=== PATIENT | female | born 1955 | race Two or more races ===

== ENCOUNTER 2022-01-24 09:22 | Inpatient (IN) | payer MEDICARE, OTHER ==
[~2022-01-24] VITALS: Ht 142.2 cm; Wt 59.1 kg
[2022-01-24] MEDS ORDERED: HYDROcodone-ACET 5/325MG TAB PO ONE (10:00)
[2022-01-24 10:15] LABS: Urine Bacteria NONE SEEN /hpf (None Seen); Urine Blood Negative /uL (Negative); Urine Specific Gravity 1.002 (1.001-1.035); Urine WBC 1 /hpf (0 - 5)
[2022-01-24 10:38] LABS: Basophils # (auto) 0.1 10 ^3/uL (0-0.2); Basophils % (auto) 1.2 % (0.0-2.0); Eosinophils # (auto) 0.1 10 ^3/uL (0-0.8); Eosinophils % (auto) 0.7 % (0.0-7.0); Lymphocytes # (auto) 2.6 10 ^3/uL (0.4-5.4); Lymphocytes % (auto) 25.3 % (10.0-50.0); Mean Corpuscular Hemoglobin 29.8 pg (28.0-32.0); Mean Corpuscular Hgb Conc. 33.3 g/dL (32.0-36.0); Mean Corpuscular Volume 89.6 fL (80.0-100.0); Monocytes # (auto) 0.8 10 ^3/uL (0-1.3); Monocytes % (auto) 8.2 % (0.0-12.0); Neutrophils # (auto) 6.6 10 ^3/uL (1.6-8.6); Neutrophils % (auto) 64.6 % (37.0-80.0); Nucleated Red Blood Cells % 0.2 %; Red Blood Cells 4.69 10^6/uL (4.0-5.20); Red Cell Distribution Width 14.4 % (11.8-14.3); White Blood Cell 10.2 10^3/uL (4.4-10.8)
[2022-01-24 10:56] LABS: Albumin 3.9 g/dL (3.4-5.0); Calcium 9.3 mg/dL (8.5-10.1); Potassium 4.3 mmol/L (3.5-5.1)
[2022-01-24 10:59] LABS: BUN/Creatinine Ratio 22.4; Bilirubin, Total 0.5 mg/dL (0.2-1.0); Total Protein 8.5 g/dL (6.4-8.2)
[2022-01-24] MEDS ORDERED: ONDANSETRON ODT 4 MG TAB PO ONE (13:00)
[2022-01-24] MEDS ORDERED: IOHEXOL 300 MG/ML 100ML BOTTLE IJ ONE ×2 (13:02→13:39)
[2022-01-24] MEDS ORDERED: metroNIDAZOLE 500MG/100ML 100 ML IV ONE (16:00)
[2022-01-24] MEDS ORDERED: cefTRIAXone 1GM/50ML D5W 50 ML IV ONE (16:00)
[2022-01-24] MEDS ORDERED: LACTATED RINGER'S 1,000 ML IV ONE (16:15)
[2022-01-24] MEDS ORDERED: ONDANSETRON HCL 4 MG/2 ML VIAL IV PRN (16:15)
[2022-01-24] MEDS ORDERED: MORPHINE SULFATE INJECTION 2 MG/ML SYRG IV PRN (16:15)
[2022-01-24] MEDS ORDERED: SODIUM CHLORIDE 0.9% 1,000 ML IV ONE (16:15)
[2022-01-24] MEDS ORDERED: PANTOPRAZOLE 40 MG/10 ML VIAL INJ IV ONE (16:45)
[2022-01-24 18:28] LABS: INR 1.05 (0.9-1.15)
[2022-01-24 18:46] VITALS: BP 175/74
[2022-01-24 22:00] VITALS: BP 162/72
[2022-01-24] MEDS: metroNIDAZOLE 500MG/100ML 100 ML IV SCH (22:18)
[2022-01-25 05:00] VITALS: BP 182/66
[2022-01-25 05:50] LABS: Basophils # (auto) 0.1 10 ^3/uL (0-0.2); Basophils % (auto) 0.7 % (0.0-2.0); Eosinophils # (auto) 0.2 10 ^3/uL (0-0.8); Eosinophils % (auto) 2.7 % (0.0-7.0); Hematocrit 38.1 % (36.0-46.0); Hemoglobin 12.9 g/dL (12.2-16.2); Lymphocytes # (auto) 2.3 10 ^3/uL (0.4-5.4); Lymphocytes % (auto) 29.3 % (10.0-50.0); Mean Corpuscular Hemoglobin 30.3 pg (28.0-32.0); Mean Corpuscular Hgb Conc. 33.9 g/dL (32.0-36.0); Mean Corpuscular Volume 89.5 fL (80.0-100.0); Monocytes # (auto) 0.8 10 ^3/uL (0-1.3); Monocytes % (auto) 10.1 % (0.0-12.0); Neutrophils # (auto) 4.4 10 ^3/uL (1.6-8.6); Neutrophils % (auto) 57.2 % (37.0-80.0); Nucleated Red Blood Cells % 0.1 %; Red Blood Cells 4.25 10^6/uL (4.0-5.20); Red Cell Distribution Width 14.5 % (11.8-14.3); White Blood Cell 7.7 10^3/uL (4.4-10.8)
[2022-01-25] MEDS: metroNIDAZOLE 500MG/100ML 100 ML IV SCH ×3 (06:03→22:04)
[2022-01-25 06:16] LABS: Potassium 5.2 mmol/L (3.5-5.1)
[2022-01-25 06:31] LABS: Albumin 3.1 g/dL (3.4-5.0); BUN/Creatinine Ratio 16.2; Bilirubin, Total 0.6 mg/dL (0.2-1.0); Calcium 8.9 mg/dL (8.5-10.1); Total Protein 7.2 g/dL (6.4-8.2)
[2022-01-25 06:42] VITALS: BP 175/75
[2022-01-25 08:00] VITALS: BP 159/77
[2022-01-25] MEDS: cefTRIAXone 1GM/50ML D5W 50 ML IV SCH (09:58)
[2022-01-25] MEDS: PANTOPRAZOLE 40 MG/10 ML VIAL INJ IV SCH (09:59)
[2022-01-25] MEDS ORDERED: amLODIPine BESYLATE 5 MG TAB PO ONE (11:15)
[2022-01-25 12:00] VITALS: BP 186/83
[2022-01-25] MEDS ORDERED: ACETAMINOPHEN 325 MG TAB PO PRN (15:45)
[2022-01-25 16:00] VITALS: BP 156/70
[2022-01-25] MEDS: LACTATED RINGER'S 1,000 ML IV SCH (16:52)
[2022-01-25 22:00] VITALS: BP 133/73
[2022-01-25] MEDS: METOPROLOL TARTRATE 50 MG TAB PO SCH (22:05)
[2022-01-26] MEDS: LACTATED RINGER'S 1,000 ML IV SCH ×4 (03:50→21:24)
[2022-01-26 05:00] VITALS: BP 141/70
[2022-01-26] MEDS: metroNIDAZOLE 500MG/100ML 100 ML IV SCH ×3 (06:20→21:24)
[2022-01-26 08:00] VITALS: BP 148/80
[2022-01-26] MEDS: cefTRIAXone 1GM/50ML D5W 50 ML IV SCH (10:12)
[2022-01-26] MEDS: PANTOPRAZOLE 40 MG/10 ML VIAL INJ IV SCH (10:13)
[2022-01-26] MEDS: METOPROLOL TARTRATE 50 MG TAB PO SCH ×2 (10:14→21:35)
[2022-01-26] MEDS: amLODIPine BESYLATE 5 MG TAB PO SCH (10:14)
[2022-01-26 12:00] VITALS: BP 148/72
[2022-01-26 16:00] VITALS: BP 134/65
[2022-01-26 21:48] VITALS: BP 146/81
[2022-01-27] VITALS (10 sets, daily range): BP systolic 103–143; BP diastolic 48–79
[2022-01-27] MEDS: metroNIDAZOLE 500MG/100ML 100 ML IV SCH ×3 (06:08→21:51)
[2022-01-27] MEDS: cefTRIAXone 1GM/50ML D5W 50 ML IV SCH (08:45)
[2022-01-27] MEDS: LACTATED RINGER'S 1,000 ML IV SCH ×2 (08:45→16:45)
[2022-01-27] MEDS: PANTOPRAZOLE 40 MG/10 ML VIAL INJ IV SCH (09:58)
[2022-01-27] MEDS: amLODIPine BESYLATE 5 MG TAB PO SCH (10:00)
[2022-01-27] MEDS: METOPROLOL TARTRATE 50 MG TAB PO SCH ×2 (10:02→21:51)
[2022-01-27] MEDS ORDERED: DexAMETHasone SOD PHOS 10MG/1ML VIAL INJ IV ONE (10:45)
[2022-01-27] MEDS ORDERED: MEPERIDINE HCL (25 MG/ML) 1ML VIAL IV ONE (10:45)
[2022-01-27] MEDS ORDERED: SUGAMMADEX 200mg/2ml Vial (100MG/ML) IV ONE (10:45)
[2022-01-27] MEDS ORDERED: ceFAZolin 1GM/50ML 100 ML IV ONE (10:45)
[2022-01-27] MEDS ORDERED: ROCURONIUM 10MG/ML 10ML VIAL IV ONE (10:45)
[2022-01-27] MEDS ORDERED: MIDAZOLAM HCL 2MG/2ML 2ml VIAL (1mg/ml) IV ONE (10:45)
[2022-01-27] MEDS ORDERED: fentaNYL CITRATE 100 MCG/2 ML VL IV ONE (10:45)
[2022-01-27] MEDS ORDERED: ETOMIDATE (2MG/ML) 20ML VIAL IV ONE (10:45)
[2022-01-27] MEDS ORDERED: MIDAZOLAM HCL 2MG/2ML 2ml VIAL (1mg/ml) IV PRN (12:15)
[2022-01-27] MEDS ORDERED: MORPHINE SULFATE 4 MG/ML SYR/VIAL IV PRN (12:15)
[2022-01-27] MEDS ORDERED: HYDROmorphone HCL 2 MG/ML VL IV PRN (12:15)
[2022-01-27] MEDS ORDERED: ePHEDrine SULFATE 50 MG/ML AMP IV PRN (12:15)
[2022-01-27] MEDS ORDERED: LABETALOL HCL 5 MG/ML 4ML SYRINGE IV PRN (12:15)
[2022-01-27] MEDS ORDERED: ONDANSETRON HCL 4 MG/2 ML VIAL IV PRN (12:15)
[2022-01-28] MEDS: LACTATED RINGER'S 1,000 ML IV SCH (00:45)
[2022-01-28 05:00] VITALS: BP 138/67
[2022-01-28] MEDS: metroNIDAZOLE 500MG/100ML 100 ML IV SCH ×2 (05:37→14:00)
[2022-01-28 05:49] LABS: Basophils # (auto) 0 10 ^3/uL (0-0.2); Basophils % (auto) 0.2 % (0.0-2.0); Eosinophils # (auto) 0 10 ^3/uL (0-0.8); Hematocrit 37.9 % (36.0-46.0); Hemoglobin 12.8 g/dL (12.2-16.2); Lymphocytes % (auto) 6.8 % (10.0-50.0); Mean Corpuscular Hemoglobin 30.1 pg (28.0-32.0); Mean Corpuscular Hgb Conc. 33.7 g/dL (32.0-36.0); Mean Corpuscular Volume 89.2 fL (80.0-100.0); Monocytes # (auto) 0.8 10 ^3/uL (0-1.3); Monocytes % (auto) 5.1 % (0.0-12.0); Neutrophils # (auto) 13.5 10 ^3/uL (1.6-8.6); Neutrophils % (auto) 87.9 % (37.0-80.0); Nucleated Red Blood Cells % 0.1 %; Red Blood Cells 4.25 10^6/uL (4.0-5.20); Red Cell Distribution Width 14.1 % (11.8-14.3); White Blood Cell 15.4 10^3/uL (4.4-10.8)
[2022-01-28 08:35] VITALS: BP 127/61
[2022-01-28] MEDS: cefTRIAXone 1GM/50ML D5W 50 ML IV SCH (08:40)
[2022-01-28] MEDS: amLODIPine BESYLATE 5 MG TAB PO SCH (10:14)
[2022-01-28] MEDS: METOPROLOL TARTRATE 50 MG TAB PO SCH (10:15)
[2022-01-28] MEDS ORDERED: METO25TA5 PO (11:22)
[2022-01-28] MEDS ORDERED: AMLO-496 PO (11:22)
[2022-01-28] MEDS ORDERED: LEVO500T31 PO (11:22)
[2022-01-28] MEDS ORDERED: METR500T PO (11:22)
[2022-01-28 12:41] VITALS: BP 126/57
== END 2022-01-28 14:00 | disposition home or self-care (01) | DRG 419 ==
LOC: ER 09:22 → OVERFLOW 16:13 → WEST WING 17:30
PROVIDERS: ADMIT Registered Nurse; ATTEND Family Medicine
PROC: 0FT44ZZ Resection of Gallbladder, Percutaneous Endoscopic Approach (ICD-10-PCS; principal; 2022-01-27 11:48)
DX: K80.00 Calculus of gallbladder with acute cholecystitis without obstruction (principal); D17.71 Benign lipomatous neoplasm of kidney; E11.9 Type 2 diabetes mellitus without complications; I10 Essential (primary) hypertension; Z20.822 Contact with and (suspected) exposure to COVID-19
CPT/HCPCS: 36415; 71045; 74177; 76705; 80053; 81001; 82247; 83690; 84484; 85025; 85610; 86850; 86900; 86901; 93005; 96365; 96368; C9113; G0378; J0690; J0696; J1100; J2250; J2405; J3490; Q0162

== ENCOUNTER → 2022-06-26 | Outpatient (CLI) | payer MEDICARE ==
[~2022-06-26] MED LIST: AMLO-496 PO; LEVO500T31 PO; METO25TA5 PO; METR500T PO
[2022-06-26 14:14] LABS: Basophils # (auto) 0.1 10 ^3/uL (0-0.2); Basophils % (auto) 1.2 % (0.0-2.0); Eosinophils # (auto) 0.2 10 ^3/uL (0-0.8); Eosinophils % (auto) 3.6 % (0.0-7.0); Hematocrit 44.9 % (36.0-46.0); Hemoglobin 14.7 g/dL (12.2-16.2); Lymphocytes # (auto) 2.2 10 ^3/uL (0.4-5.4); Lymphocytes % (auto) 36.6 % (10.0-50.0); Mean Corpuscular Hemoglobin 29.6 pg (28.0-32.0); Mean Corpuscular Hgb Conc. 32.7 g/dL (32.0-36.0); Mean Corpuscular Volume 90.7 fL (80.0-100.0); Monocytes # (auto) 0.5 10 ^3/uL (0-1.3); Monocytes % (auto) 9.2 % (0.0-12.0); Neutrophils % (auto) 49.4 % (37.0-80.0); Nucleated Red Blood Cells % 0.1 %; Red Blood Cells 4.95 10^6/uL (4.0-5.20); Red Cell Distribution Width 14.3 % (11.8-14.3)
[2022-06-26 14:23] LABS: Urine Blood Negative /uL (Negative); Urine Specific Gravity 1.013 (1.001-1.035)
[2022-06-26 14:25] LABS: Albumin 3.7 g/dL (3.4-5.0); Calcium 9.3 mg/dL (8.5-10.1); Potassium 4.5 mmol/L (3.5-5.1)
[2022-06-26 14:37] LABS: BUN/Creatinine Ratio 18.5; Bilirubin, Total 0.4 mg/dL (0.2-1.0); Free T4 (Free Thyroxine) 1.29 ng/dL (0.89-1.76); Total Protein 8.5 g/dL (6.4-8.2)
== END | disposition home or self-care (01) ==
LOC: LAB 08:33
PROVIDERS: ATTEND Internal Medicine Cardiovascular Disease
DX: I10 Essential (primary) hypertension (principal); E55.9 Vitamin D deficiency, unspecified; D51.3 Other dietary vitamin B12 deficiency anemia; D64.9 Anemia, unspecified; E11.9 Type 2 diabetes mellitus without complications; R00.2 Palpitations; R53.1 Weakness; R30.0 Dysuria
CPT/HCPCS: 36415; 80053; 80061; 81003; 82306; 82607; 83036; 84439; 84443; 85025

== ENCOUNTER → 2022-10-20 | Outpatient (CLI) | payer MEDICARE | END | disposition home or self-care (01) | LOC: Rad HDHVI 10:57 | PROVIDERS: ATTEND Internal Medicine Cardiovascular Disease | DX: I08.1 Rheumatic disorders of both mitral and tricuspid valves (principal); R00.2 Palpitations; R00.1 Bradycardia, unspecified | CPT/HCPCS: 93306 ==

== ENCOUNTER → 2022-10-22 | Outpatient (CLI) | payer MEDICARE ==
[~2022-10-22] VITALS: Ht 134.6 cm; Wt 59.0 kg
[~2022-10-22] MED LIST changes: +METOPROLOL SUCCINATE XL 50 MG TAB PO ONE; +amLODIPine BESYLATE 5 MG TAB ONE; +amLODIPine BESYLATE 5 MG TAB PO ONE; +cloNIDine HCL 0.1 MG TAB ONE; +cloNIDine HCL 0.1 MG TAB PO ONE
== END | disposition home or self-care (01) ==
LOC: Rad HDHVI 09:06
PROVIDERS: ATTEND Internal Medicine Cardiovascular Disease
DX: R00.1 Bradycardia, unspecified (principal); R00.2 Palpitations; R06.02 Shortness of breath; I10 Essential (primary) hypertension; Z82.49 Family history of ischemic heart disease and other diseases of the circulatory system; Z79.899 Other long term (current) drug therapy
CPT/HCPCS: 78452; 93017; 96374; A9500

== ENCOUNTER → 2023-02-25 | Outpatient (CLI) | payer MEDICARE ==
[~2023-02-25] MED LIST changes: -METOPROLOL SUCCINATE XL 50 MG TAB PO ONE; -amLODIPine BESYLATE 5 MG TAB ONE; -amLODIPine BESYLATE 5 MG TAB PO ONE; -cloNIDine HCL 0.1 MG TAB ONE; -cloNIDine HCL 0.1 MG TAB PO ONE
== END | disposition home or self-care (01) ==
LOC: LAB 09:20
PROVIDERS: ATTEND Internal Medicine Cardiovascular Disease
DX: D51.3 Other dietary vitamin B12 deficiency anemia (principal); E11.9 Type 2 diabetes mellitus without complications; D64.9 Anemia, unspecified; E55.9 Vitamin D deficiency, unspecified; I10 Essential (primary) hypertension; R00.2 Palpitations; R53.1 Weakness; R30.0 Dysuria
CPT/HCPCS: 36415; 83036

== ENCOUNTER → 2024-04-13 | Outpatient (CLI) | payer MEDICARE, MEDICAID ==
[~2024-04-13] MED LIST changes: -AMLO-496 PO; +AMLO1TAB23 PO
== END | disposition home or self-care (01) ==
LOC: Rad HDHVI 09:07
PROVIDERS: ATTEND Internal Medicine Cardiovascular Disease
DX: I10 Essential (primary) hypertension (principal)
CPT/HCPCS: 93306

== ENCOUNTER → 2024-04-18 | Outpatient (CLI) | payer MEDICARE, MEDICAID ==
[~2024-04-18] VITALS: Ht 142.2 cm; Wt 59.0 kg
== END | disposition home or self-care (01) ==
LOC: Rad HDHVI 08:30
PROVIDERS: ATTEND Internal Medicine Cardiovascular Disease
DX: I10 Essential (primary) hypertension (principal); E78.00 Pure hypercholesterolemia, unspecified; R00.2 Palpitations; E11.21 Type 2 diabetes mellitus with diabetic nephropathy
CPT/HCPCS: 78452; 93017; 96374; A9500

== ENCOUNTER 2025-08-14 08:38 | Outpatient (CLI) | payer MEDICARE, MEDICAID ==
[~2025-08-14] VITALS: Ht 142.2 cm; Wt 52.2 kg
== END 2025-08-14 17:00 | disposition home or self-care (01) ==
LOC: Rad HDHVI 08:38
PROVIDERS: ATTEND Internal Medicine Cardiovascular Disease
DX: R00.0 Tachycardia, unspecified (principal); R00.1 Bradycardia, unspecified; I11.0 Hypertensive heart disease with heart failure; I50.33 Acute on chronic diastolic (congestive) heart failure; R00.2 Palpitations; R06.02 Shortness of breath; E11.40 Type 2 diabetes mellitus with diabetic neuropathy, unspecified; E78.00 Pure hypercholesterolemia, unspecified
CPT/HCPCS: 78452; 93017; A9500; 96374

== ENCOUNTER 2025-08-16 10:42 | Outpatient (CLI) | payer MEDICARE, MEDICAID | END 2025-08-16 17:00 | disposition home or self-care (01) | LOC: Rad HDHVI 10:42 | PROVIDERS: ATTEND Internal Medicine Cardiovascular Disease | DX: I07.1 Rheumatic tricuspid insufficiency (principal); I10 Essential (primary) hypertension; R00.2 Palpitations | CPT/HCPCS: 93306 ==

== ENCOUNTER 2025-08-23 15:33 | Outpatient (CLI) | payer MEDICARE, MEDICAID | END 2025-08-23 17:00 | disposition home or self-care (01) | LOC: Rad HDHVI 15:33 | PROVIDERS: ATTEND Internal Medicine Cardiovascular Disease | DX: I10 Essential (primary) hypertension (principal); R00.2 Palpitations | CPT/HCPCS: 93880 ==